=== PATIENT | female | born 1980 | race Caucasian/White ===

== ENCOUNTER 2025-08-19 15:12 | Outpatient (AMB) | payer MEDICAID, SELFPAY ==
[2025-08-19 15:27] VITALS: BP 143/90; PULSE 80; RESP 16; TEMP 37.1; O2SAT 96; BMI 30.4
--- NOTE | 2025-08-19 15:27 | AMB.GYNCLNOT ---
Vital Signs 08/19/25 15:27 Height 1.68 m Height Method Stated Weight 85.445 kg Weight Measurement Method Standing Scale BMI 30.4 BP 143/90 H Blood Pressure Source Automatic Cuff Blood Pressure Location Left Upper Arm Position Sitting Respiration 16 Pulse 80 Pulse Source Monitor Temp 98.7 F Temp Source Oral Pulse Oximetry (%) 96 Oxygen Delivery Method Room Air Allergies/Home Meds Allergies & Medications Allergies No Known Allergies Allergy (Verified 08/19/25 15:28) Medication Reconciliation No Known Home Medications 08/19/25 [History Confirmed 08/19/25] Intake Visit Data Collection New Patient or Established: New Patient (never been to [facility]) Reason for Visit:: REFERRAL/ HPV POSITIVE Seen by Clinical Staff ONLY (RN/MA): No Sizing Machine Operator Required: No Do You Feel Safe at Home: Yes Authorities Contacted: N/A PCP or OBGYN visit in last 3 months: Yes Hx Now: No Are you currently on any form of Control: No Pain Present Currently: No Pain Scale Used: Hu-Ye/Numerical Pain scale:: 0 Smoking Status Smoking Status: Never smoker Immunizations Flu Vaccine in the Last 12 Months: No Flu Vaccine Exclusion Criteria: Refused by Patient Bias Binding Folder history Bias Binding Folder History Menstrual regularity: irregular Flow: heavy Monthly: Yes How many days does period last: 5 Age at menarche: 11 Currently sexually active: Yes Questionnaires Covid-19 Vaccine Questionnaire Has patient been vacinated for Covid-19 Have you been vacinated for Covid-19: Yes PHQ-9 PHQ-2 Over the last 2 weeks, how often have you been bothered by any of the following problems? 1. Little interest or pleasure in doing things: not at all 2. Feeling down, depressed, or hopeless: not at all Total score: 0 PHQ-9 3. Trouble falling or staying asleep, or sleeping too much: Not at all 4. Feeling tired or having little energy: Not at all 5. Poor appetite or overeating: Not at all 6. Feeling bad about yourself - or that you are a failure or have let yourself or your family down: Not at all 7. Trouble concentrating on things, such as reading the newspaper or watching television: Not at all 8. Moving or speaking so slowly that other people could have noticed? - Or the opposite - being so fidgety or restless that you have been moving around a lot more than usual: not at all 9. Thoughts that you would be better off or of hurting yourself in some way: Not at all Total score: 0 Source: Developed by Drs. Kelvin Marie, Carly Chatterjee, Nitin Matson and colleagues, with an educational jaswant from [employer]. Depression screen completed yes Social History Living Situation History Lives With: Family Housing: House Tobacco History Smoking Status: Never smoker Second Hand Smoke Exposure: No Alcohol History Alcohol Intake: Never Domestic Abuse History Do You Feel Safe at Home: Yes History of Present Illness HPI Narrative HPV positive pap smear, scheduled cauterization procedure that was cancelled due to insurance authorization issues Karyn Mckeon is a patient with a history of hysterectomy 9 years ago who presents with HPV positive pap smear results and precancerous changes. She underwent hysterectomy 9 years ago in [place] for bleeding related to a fibroid (described as neoma ), with removal of the entire uterus but preservation of one ovary. The hysterectomy was performed for non-cancerous reasons. The patient has been receiving ongoing pap smears from Dr. Pacheco, who performed her original surgery. 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 She was scheduled for cauterization procedure with Dr. Spencer, a cancer specialist, which was described as a brief 7-minute procedure in the operating room. However, this procedure was cancelled because her insurance did not authorize it due to being from another district. The patient continues to receive care through [facility] as her primary medical provider. She had requested to see Dr. Cintron but was informed that this physician is not accepting new patients. Surgical History: - Hysterectomy 9 years ago in [place] for bleeding (non-cancer indication), with removal of entire uterus and retention of one ovary - HPV positive on pap smear - Vaginal cuff biopsy (07-21-2024): High grade CIN2 Exam General General Appearance: alert, in no apparent distress and healthy appearing Head Head exam: atraumatic Neck Neck exam: Present normal inspection and trachea midline Chest Chest inspection: Present normal inspection and symmetric chest wall rise External exam: Present normal external exam; Absent tenderness Neuro Neurological exam: Present oriented X3 Psych Psychiatric exam: Present normal affect and normal mood Office Procedures OBC Clinic LOC & Office Proc's Nursing/Assessment Patient Status: Established Patient OB Clinic Nursing Assessment: Medication Reconciliation, Update PMH in EMR and Vital Signs OB Clinic Coordination of Care: Complex Care and Chronic Disease 1-5, Consent,records obtained, informed consent, Education Simp Pt/Fam, 1 Ins Authorization, Lab and Imaging orders, Results/Orders obtained and Staff clarify orders Established Patient Charge Established Patient Point Assignment: 120 Established Patient Point Charge: EP Level 4 (120-155) Assessment & Plan Diagnosis / Problem List (1) Moderate cervical dysplasia: Status: Acute (2) Acquired absence of both cervix and uterus: Status: Acute (3) Papillomavirus as the cause of diseases classified elsewhere: Status: Acute Plan High-grade CIN2 post-hysterectomy Assessment: Patient had hysterectomy 9 years ago for benign indication with one ovary remaining. Recent vaginal cuff biopsy from 07-21-24 showed high-grade CIN2, which represents precancerous changes. HPV positive on Pap smear. Previous planned cauterization procedure was cancelled due to insurance authorization issues from different district. This condition requires specialized surgical management by gynecologic oncology as post-hysterectomy vaginal cuff procedures carry higher risk and require expertise beyond general gynecology scope. Plan: - Referral to Dr. Sarabia at [facility] for gynecologic oncology evaluation and management - Provider will write referral letter for patient to take to [facility] for insurance approval - Cannot perform procedure at current facility due to complexity of post-hysterectomy anatomy requiring specialized care
== END 2025-08-19 16:03 | disposition home or self-care (01) ==
LOC: HODSOBC 15:12
PROVIDERS: PCP Physician Assistant; Referring Provider Physician Assistant; Supervising Provider Obstetrics & Gynecology; Visit Provider Obstetrics & Gynecology
DX: N87.1 Moderate cervical dysplasia (principal); B97.7 Papillomavirus as the cause of diseases classified elsewhere; Z90.710 Acquired absence of both cervix and uterus
CPT/HCPCS: 99214; G0463